=== PATIENT | female | born 1965 | race Caucasian/White ===

== ENCOUNTER 2018-08-19 08:50 | Outpatient (CLI) | payer MEDICAID | END 2018-08-19 23:59 | disposition home or self-care (01) | LOC: WOUND 08:50 | PROVIDERS: ATTEND Internal Medicine | DX: T81.32XA Disruption of internal operation (surgical) wound, not elsewhere classified, initial encounter (principal); K50.113 Crohn's disease of large intestine with fistula; E11.8 Type 2 diabetes mellitus with unspecified complications; F17.200 Nicotine dependence, unspecified, uncomplicated; Z92.25 Personal history of immunosuppression therapy; Z90.710 Acquired absence of both cervix and uterus; Y83.8 Other surgical procedures as the cause of abnormal reaction of the patient, or of later complication, without mention of misadventure at the time of the procedure; Y92.89 Other specified places as the place of occurrence of the external cause | CPT/HCPCS: 99215 ==

== ENCOUNTER → 2018-09-02 | Outpatient (CLI) | payer MEDICAID | END | disposition home or self-care (01) | LOC: WOUND 10:00 | PROVIDERS: ATTEND Internal Medicine Cardiovascular Disease | DX: T81.31XD Disruption of external operation (surgical) wound, not elsewhere classified, subsequent encounter (principal); E11.9 Type 2 diabetes mellitus without complications; K50.113 Crohn's disease of large intestine with fistula; F17.200 Nicotine dependence, unspecified, uncomplicated; Z92.25 Personal history of immunosuppression therapy; Z90.710 Acquired absence of both cervix and uterus; Y83.8 Other surgical procedures as the cause of abnormal reaction of the patient, or of later complication, without mention of misadventure at the time of the procedure | CPT/HCPCS: 99214 ==

== ENCOUNTER → 2018-09-28 | Outpatient (CLI) | payer MEDICAID | END | disposition home or self-care (01) | LOC: WOUND 14:11 | PROVIDERS: ATTEND Internal Medicine | DX: T81.31XD Disruption of external operation (surgical) wound, not elsewhere classified, subsequent encounter (principal); K50.113 Crohn's disease of large intestine with fistula; E11.9 Type 2 diabetes mellitus without complications; E03.9 Hypothyroidism, unspecified; F17.200 Nicotine dependence, unspecified, uncomplicated; Z79.4 Long term (current) use of insulin; Z79.899 Other long term (current) drug therapy; Z90.710 Acquired absence of both cervix and uterus; Z92.25 Personal history of immunosuppression therapy; Y83.8 Other surgical procedures as the cause of abnormal reaction of the patient, or of later complication, without mention of misadventure at the time of the procedure | CPT/HCPCS: 97597; 97598 ==

== ENCOUNTER 2018-12-20 08:44 | Inpatient (IN) | payer MEDICAID ==
[~2018-12-20] VITALS: Ht 172.7 cm; Wt 92.3 kg
--- NOTE | 2018-12-20 09:25 | NUR ---
PT AWAITING SURGERY AT [facility] END OF DECEMBER FOR MULTIPLE ISSUES INCLUDING FISTULA ORIGINATING FROM SMALL BOWEL. PT OVERWHELMED SURGERY HAS BEEN POSTPONED TWICE BY ONE MONTH. PT HAS NAUSEA AND DIFFICULTY KEEPING PAIN MEDS DOWN. PT HAS HOME HEALTH NURSE THAT COMES TO HER HOME DAILY TO COMPLETE WOUND CARE ON WOUNDS AT CREASES OF THIGH, ABOVE VAGINA AND FISTULA THAT ORIGINATES FOR SMALL BOWEL. MOTHER WITH PT. PT TEARY AND EXPERIENCING MUCH PAIN GETTING INTO GURNEY.
[2018-12-20] MEDS ORDERED: ONDANSETRON 2MG/ML, 2ML IVPush ONE ×2 (09:30→12:30)
[2018-12-20] MEDS ORDERED: SODIUM CHLORIDE FLUSH 10ML SYR IVF ONE (09:30)
[2018-12-20] MEDS ORDERED: BUPR100T11 PO (09:34)
[2018-12-20] MEDS ORDERED: MICO25PO2 TP (09:34)
[2018-12-20] MEDS ORDERED: METF500T17 PO (09:34)
[2018-12-20] MEDS ORDERED: ONDA4TAB7 PO (09:34)
[2018-12-20] MEDS ORDERED: OXYC10TA6 PO (09:34)
[2018-12-20] MEDS ORDERED: MICONAZOLE 2% (09:50)
[2018-12-20 10:01] LABS: BASOPHILS # (AUTO) 0.07 x10^3/uL (0-0.1); BASOPHILS % (AUTO) 1 % (0-1); EOSINOPHILS # (AUTO) 0.22 x10^3/uL (0-0.4); EOSINOPHILS % (AUTO) 2 % (1-7); LYMPHOCYTES # (AUTO) 0.86 x10^3/uL (1-3.4); LYMPHOCYTES % (AUTO) 7 % (22-44); MD NO; MEAN CORPUSCULAR HEMOGLOBIN 25.6 pg (27.0-34.8); MEAN CORPUSCULAR HGB CONC 31.3 g/dL (32.4-35.8); MEAN CORPUSCULAR VOLUME 81.9 fL (80-100); MEAN PLATELET VOLUME 7.8 fL (7.4-10.4); MONOCYTES # (AUTO) 0.63 x10^3/uL (0.2-0.8); MONOCYTES % (AUTO) 5 % (2-9); NEUTROPHILS % (AUTO) 85 % (42-75); PLATELET COUNT 430 x10^3/uL (130-400); RED CELL DISTRIBUTION WIDTH 15.3 % (9.6-15.2)
[2018-12-20] MEDS ORDERED: ONDANSETRON 2MG/ML, 2ML ONE ×2 (10:02→12:12)
[2018-12-20] MEDS ORDERED: HYDROmorphone 2 MG/ML, 1ML ONE ×2 (10:02→13:30)
[2018-12-20 10:11] LABS: ALANINE AMINOTRANSFERASE 12 U/L (12-78); ANION GAP 8 mmol/L (5-15); CALCIUM 11.2 mg/dL (8.5-10.1); CHLORIDE 100 mmol/L (98-107)
[2018-12-20 10:13] LABS: ALKALINE PHOSPHATASE 89 U/L (45-117); BILIRUBIN,TOTAL 0.6 mg/dL (0.2-1.0); CREATININE 1.44 mg/dL (0.55-1.02); TOTAL PROTEIN 8.7 g/dL (6.4-8.2)
[2018-12-20] MEDS: HYDROmorphone 2 MG/ML, 1ML IVPush PRN ×2 (10:17→13:35)
--- NOTE | 2018-12-20 10:21 | NUR ---
pt resting in room. vss. iv established and pt medicated per mar. no needs expressed. pt states will provide ua sample after pain medication begins to work.
--- NOTE | 2018-12-20 11:02 | NUR ---
PER EDMD, OK TO POSTPONE UA SAMPLE COLLECTION. NEW ORDERS RECEIVED AT THIS TIME FOR CT OF ABD.
--- NOTE | 2018-12-20 11:04 | NUR ---
pt resting in room. vss. 2lnc placed after dilaudid administration. pt reports pain has decreased from 810 to 6. no needs expressed. awaiting ct.
[2018-12-20] MEDS ORDERED: OMNIPAQUE 350 MG/ML, 100ML BOTTLE ONE (11:36)
--- NOTE | 2018-12-20 11:48 | NUR ---
PT BACK FROM IMAGING. VSS. NO NEEDS EXPRESSED. AWAITING RESULTS.
--- NOTE | 2018-12-20 11:50 | NUR ---
edmd and radiologist to bs for assessment. awaiting further orders.
--- NOTE | 2018-12-20 12:17 | NUR ---
pt requesting medication for nausea. edmd notified and orders received. medication administered. no other needs expressed. plan to admit. awaiting room assignment.
--- NOTE | 2018-12-20 12:45 | NUR ---
PT RESTING IN ROOM WITH LIGHTS DIMMED. VSS. PT REPORTS NAUSEA HAS RESOLVED. NO OTHER NEEDS EXPRESSED. CALL L[facility]. AWAITING ROOM ASSIGNMENT.
[2018-12-20] MEDS ORDERED: SODIUM CHLORIDE FLUSH 10ML SYR IVF PRN (13:00)
[2018-12-20] MEDS ORDERED: SODIUM CHLORIDE 0.9% 1,000 ML IV SCH (13:29)
[2018-12-20] MEDS ORDERED: ZOSYN PER PHARMACY MC PRN (13:30)
[2018-12-20] MEDS ORDERED: PROMETHAZINE 25 MG/ML, 1ML IM PRN (13:30)
[2018-12-20] MEDS ORDERED: LABETALOL 5 MG/ML SYRINGE IVPush PRN (13:30)
[2018-12-20] MEDS ORDERED: hydrALAzine 20 MG/ML, 1ML IVPush PRN (13:30)
--- NOTE | 2018-12-20 13:38 | NUR ---
PT RESTING IN BED. PT REPORTS INCREASED PAIN AFTER HOSPITALIST ASSESSMENT. PT MEDICATED PER MAR FOR PAIN. REPORT TO LILIANA JAY. PT READY FOR TRANSPORT.
[2018-12-20 14:33] VITALS: BP 105/65
[2018-12-20] MEDS: LINEZOLID PMX 600MG/300ML 300 ML IV SCH (14:49)
[2018-12-20] MEDS: INSULIN LISPRO 100 UNITS/ML, PEN SQ-INSULIN SCH ×2 (15:55→20:21)
[2018-12-20] MEDS: PIPERACILLIN/TAZO/PMX 3.375GM 50 ML IV SCH ×2 (17:04→23:13)
[2018-12-20] MEDS: SODIUM CHLORIDE 0.9% 1,000 ML IV SCH ×3 (17:04→22:46)
[2018-12-20] MEDS: HEPARIN 5,000 UNITS/ML, 1ML SQ SCH (17:07)
[2018-12-20] MEDS: OXYcodone IR 5MG TABLET PO PRN ×2 (18:13→22:46)
[2018-12-20 19:51] VITALS: BP 92/53
[2018-12-20] MEDS: morphine SULFATE 10 MG/ML, 1ML IVPush PRN ×2 (20:20→23:44)
[2018-12-20] MEDS: BUPROPION 100 MG TABLET PO SCH (20:20)
[2018-12-20] MEDS: ONDANSETRON 2MG/ML, 2ML IVPush PRN (20:57)
[2018-12-21] MEDS: LINEZOLID PMX 600MG/300ML 300 ML IV SCH ×2 (01:47→14:05)
[2018-12-21] MEDS: HEPARIN 5,000 UNITS/ML, 1ML SQ SCH ×3 (01:47→17:22)
[2018-12-21] MEDS: OXYcodone IR 5MG TABLET PO PRN ×5 (02:54→20:49)
[2018-12-21 03:18] VITALS: BP 90/53
[2018-12-21] MEDS: PIPERACILLIN/TAZO/PMX 3.375GM 50 ML IV SCH ×4 (04:23→22:17)
[2018-12-21] MEDS: morphine SULFATE 10 MG/ML, 1ML IVPush PRN ×3 (04:23→22:17)
[2018-12-21 06:30] LABS: BASOPHILS # (AUTO) 0.05 x10^3/uL (0-0.1); BASOPHILS % (AUTO) 1 % (0-1); EOSINOPHILS # (AUTO) 0.22 x10^3/uL (0-0.4); EOSINOPHILS % (AUTO) 3 % (1-7); LYMPHOCYTES # (AUTO) 0.81 x10^3/uL (1-3.4); LYMPHOCYTES % (AUTO) 11 % (22-44); MD NO; MEAN CORPUSCULAR HEMOGLOBIN 26.2 pg (27.0-34.8); MEAN CORPUSCULAR VOLUME 81.9 fL (80-100); MONOCYTES # (AUTO) 0.73 x10^3/uL (0.2-0.8); MONOCYTES % (AUTO) 10 % (2-9); NEUTROPHILS # (AUTO) 5.87 x10^3/uL (1.8-6.8); NEUTROPHILS % (AUTO) 76 % (42-75); PLATELET COUNT 349 x10^3/uL (130-400); RED BLOOD COUNT 3.96 x10^6/uL (3.82-5.3); RED CELL DISTRIBUTION WIDTH 14.8 % (9.6-15.2)
[2018-12-21] MEDS: INSULIN LISPRO 100 UNITS/ML, PEN SQ-INSULIN SCH ×4 (06:36→20:49)
[2018-12-21 06:39] LABS: CHLORIDE 105 mmol/L (98-107)
[2018-12-21 06:56] LABS: ALANINE AMINOTRANSFERASE 9 U/L (12-78); ALBUMIN 2.2 g/dL (3.4-5.0); ALKALINE PHOSPHATASE 71 U/L (45-117); ANION GAP 9 mmol/L (5-15); BILIRUBIN,TOTAL 0.9 mg/dL (0.2-1.0); CALCIUM 9.6 mg/dL (8.5-10.1); TOTAL PROTEIN 6.6 g/dL (6.4-8.2)
[2018-12-21 07:58] VITALS: BP 93/58
[2018-12-21] MEDS: BUPROPION 100 MG TABLET PO SCH ×3 (10:04→20:49)
[2018-12-21] MEDS: SODIUM CHLORIDE 0.9% 1,000 ML IV SCH (12:02)
[2018-12-21 12:48] LABS: MICROSCOPIC AUTO
[2018-12-21 13:04] LABS: CULTURE INDICATED? YES
[2018-12-21 14:09] VITALS: BP 85/51
[2018-12-21 20:00] VITALS: BP 105/65
[2018-12-22] MEDS: OXYcodone IR 5MG TABLET PO PRN ×5 (00:49→20:18)
[2018-12-22] MEDS: HEPARIN 5,000 UNITS/ML, 1ML SQ SCH ×3 (00:49→16:20)
[2018-12-22] MEDS: LINEZOLID PMX 600MG/300ML 300 ML IV SCH ×2 (02:23→13:51)
[2018-12-22] MEDS: morphine SULFATE 10 MG/ML, 1ML IVPush PRN ×3 (02:58→16:22)
[2018-12-22 03:00] VITALS: BP 92/52
[2018-12-22] MEDS: SODIUM CHLORIDE 0.9% 1,000 ML IV SCH ×2 (04:54→23:02)
[2018-12-22] MEDS: PIPERACILLIN/TAZO/PMX 3.375GM 50 ML IV SCH ×4 (04:54→23:02)
[2018-12-22 05:33] LABS: ALANINE AMINOTRANSFERASE 8 U/L (12-78); ALBUMIN 2.2 g/dL (3.4-5.0); ANION GAP 7 mmol/L (5-15); CALCIUM 9.6 mg/dL (8.5-10.1); CHLORIDE 108 mmol/L (98-107); CREATININE 1.33 mg/dL (0.55-1.02)
[2018-12-22 05:35] LABS: ALKALINE PHOSPHATASE 65 U/L (45-117); TOTAL PROTEIN 6.7 g/dL (6.4-8.2)
[2018-12-22 05:37] LABS: BILIRUBIN,TOTAL < 0.1 mg/dL (0.2-1.0)
[2018-12-22 06:38] VITALS: BP 93/56
[2018-12-22] MEDS: INSULIN LISPRO 100 UNITS/ML, PEN SQ-INSULIN SCH ×4 (07:00→20:17)
[2018-12-22] MEDS: BUPROPION 100 MG TABLET PO SCH ×3 (09:04→20:19)
[2018-12-22 12:14] VITALS: BP 100/63
[2018-12-22 18:33] VITALS: BP 91/60
[2018-12-23] MEDS: HEPARIN 5,000 UNITS/ML, 1ML SQ SCH ×3 (01:07→15:59)
[2018-12-23] MEDS: OXYcodone IR 5MG TABLET PO PRN ×4 (01:07→19:43)
[2018-12-23 01:43] VITALS: BP 97/54
[2018-12-23] MEDS: LINEZOLID PMX 600MG/300ML 300 ML IV SCH ×2 (01:46→13:49)
[2018-12-23] MEDS: PIPERACILLIN/TAZO/PMX 3.375GM 50 ML IV SCH ×4 (05:20→23:47)
[2018-12-23] MEDS: morphine SULFATE 10 MG/ML, 1ML IVPush PRN ×2 (05:20→15:59)
[2018-12-23 05:36] LABS: BASOPHILS # (AUTO) 0.03 x10^3/uL (0-0.1); BASOPHILS % (AUTO) 0 % (0-1); EOSINOPHILS # (AUTO) 0.28 x10^3/uL (0-0.4); EOSINOPHILS % (AUTO) 5 % (1-7); LYMPHOCYTES % (AUTO) 18 % (22-44); MD NO; MEAN CORPUSCULAR HEMOGLOBIN 26.1 pg (27.0-34.8); MEAN CORPUSCULAR HGB CONC 31.6 g/dL (32.4-35.8); MEAN CORPUSCULAR VOLUME 82.6 fL (80-100); MEAN PLATELET VOLUME 7.9 fL (7.4-10.4); MONOCYTES # (AUTO) 0.43 x10^3/uL (0.2-0.8); MONOCYTES % (AUTO) 7 % (2-9); NEUTROPHILS # (AUTO) 4.22 x10^3/uL (1.8-6.8); NEUTROPHILS % (AUTO) 70 % (42-75); PLATELET COUNT 381 x10^3/uL (130-400); RED BLOOD COUNT 4.06 x10^6/uL (3.82-5.3)
[2018-12-23 05:39] LABS: HCT (SEDRATE) 33.3 % (34.6-47.8)
[2018-12-23 05:42] LABS: CHLORIDE 107 mmol/L (98-107)
[2018-12-23 05:58] LABS: ALANINE AMINOTRANSFERASE 11 U/L (12-78); ALBUMIN 2.4 g/dL (3.4-5.0); ALKALINE PHOSPHATASE 69 U/L (45-117); ANION GAP 9 mmol/L (5-15); BILIRUBIN,TOTAL 0.3 mg/dL (0.2-1.0); CALCIUM 9.8 mg/dL (8.5-10.1)
[2018-12-23] MEDS: INSULIN LISPRO 100 UNITS/ML, PEN SQ-INSULIN SCH ×4 (07:33→22:54)
[2018-12-23 07:55] VITALS: BP 100/66
[2018-12-23] MEDS: BUPROPION 100 MG TABLET PO SCH ×3 (07:56→22:55)
[2018-12-23 14:55] VITALS: BP 115/73
[2018-12-23 20:18] VITALS: BP 106/55
[2018-12-24] MEDS: OXYcodone IR 5MG TABLET PO PRN ×5 (00:32→20:44)
[2018-12-24] MEDS: HEPARIN 5,000 UNITS/ML, 1ML SQ SCH ×3 (00:33→16:38)
[2018-12-24 01:31] VITALS: BP 101/64
[2018-12-24] MEDS: PIPERACILLIN/TAZO/PMX 3.375GM 50 ML IV SCH ×4 (05:26→22:45)
[2018-12-24 06:06] LABS: ALBUMIN 2.4 g/dL (3.4-5.0); ANION GAP 7 mmol/L (5-15); CALCIUM 9.8 mg/dL (8.5-10.1); CHLORIDE 109 mmol/L (98-107)
[2018-12-24 06:11] LABS: ALANINE AMINOTRANSFERASE 8 U/L (12-78); ALKALINE PHOSPHATASE 64 U/L (45-117); BILIRUBIN,TOTAL 0.4 mg/dL (0.2-1.0); CREATININE 1.33 mg/dL (0.55-1.02)
[2018-12-24] MEDS: INSULIN LISPRO 100 UNITS/ML, PEN SQ-INSULIN SCH ×4 (07:00→20:44)
[2018-12-24 07:10] VITALS: BP 102/62
[2018-12-24] MEDS: BUPROPION 100 MG TABLET PO SCH ×3 (09:06→20:44)
[2018-12-24] MEDS: morphine SULFATE 10 MG/ML, 1ML IVPush PRN ×2 (12:35→16:46)
[2018-12-24 12:47] VITALS: BP 106/70
[2018-12-24] MEDS: ACETAMINOPHEN 325 MG TABLET PO PRN ×2 (16:42→20:44)
[2018-12-24] MEDS: CLOTRIM/BETAMETH 1%/0.05% CRM TP SCH (20:45)
[2018-12-24 21:07] VITALS: BP 101/67
[2018-12-25] MEDS: ACETAMINOPHEN 325 MG TABLET PO PRN ×5 (00:37→23:54)
[2018-12-25] MEDS: HEPARIN 5,000 UNITS/ML, 1ML SQ SCH ×3 (00:37→17:29)
[2018-12-25] MEDS: OXYcodone IR 5MG TABLET PO PRN ×6 (00:37→23:55)
[2018-12-25] MEDS: ONDANSETRON 2MG/ML, 2ML IVPush PRN (00:40)
[2018-12-25] MEDS: morphine SULFATE 10 MG/ML, 1ML IVPush PRN ×5 (02:14→21:40)
[2018-12-25 03:07] VITALS: BP 105/61
[2018-12-25] MEDS: PIPERACILLIN/TAZO/PMX 3.375GM 50 ML IV SCH ×4 (04:47→22:22)
[2018-12-25 06:55] VITALS: BP 103/67
[2018-12-25] MEDS: INSULIN LISPRO 100 UNITS/ML, PEN SQ-INSULIN SCH ×4 (07:00→21:00)
[2018-12-25] MEDS: BUPROPION 100 MG TABLET PO SCH ×3 (08:51→21:30)
[2018-12-25] MEDS: CLOTRIM/BETAMETH 1%/0.05% CRM TP SCH ×2 (12:00→21:30)
[2018-12-25 15:00] VITALS: BP 92/61
[2018-12-25 20:15] VITALS: BP 104/66
[2018-12-26 00:46] VITALS: BP 98/62
[2018-12-26] MEDS: HEPARIN 5,000 UNITS/ML, 1ML SQ SCH ×3 (01:21→16:49)
[2018-12-26] MEDS: morphine SULFATE 10 MG/ML, 1ML IVPush PRN ×2 (03:01→10:59)
[2018-12-26] MEDS: OXYcodone IR 5MG TABLET PO PRN ×5 (04:20→21:14)
[2018-12-26] MEDS: PIPERACILLIN/TAZO/PMX 3.375GM 50 ML IV SCH ×4 (04:20→22:31)
[2018-12-26] MEDS: ACETAMINOPHEN 325 MG TABLET PO PRN ×4 (04:20→16:49)
[2018-12-26] MEDS: INSULIN LISPRO 100 UNITS/ML, PEN SQ-INSULIN SCH ×4 (07:00→21:19)
[2018-12-26] MEDS: CLOTRIM/BETAMETH 1%/0.05% CRM TP SCH ×2 (08:20→21:13)
[2018-12-26] MEDS: BUPROPION 100 MG TABLET PO SCH ×3 (08:20→21:13)
[2018-12-26 08:22] VITALS: BP 107/70
[2018-12-26 17:04] VITALS: BP 110/71
[2018-12-26 17:05] VITALS: BP 110/71
[2018-12-26 19:11] VITALS: BP 109/58
[2018-12-27] MEDS: OXYcodone IR 5MG TABLET PO PRN ×4 (02:14→21:37)
[2018-12-27] MEDS: HEPARIN 5,000 UNITS/ML, 1ML SQ SCH ×3 (02:14→17:17)
[2018-12-27 02:30] VITALS: BP 114/72
[2018-12-27] MEDS: morphine SULFATE 10 MG/ML, 1ML IVPush PRN ×3 (03:02→13:27)
[2018-12-27] MEDS: PIPERACILLIN/TAZO/PMX 3.375GM 50 ML IV SCH ×4 (05:01→23:07)
[2018-12-27] MEDS: INSULIN LISPRO 100 UNITS/ML, PEN SQ-INSULIN SCH ×4 (07:00→21:41)
[2018-12-27 07:31] VITALS: BP 111/69
[2018-12-27] MEDS: CLOTRIM/BETAMETH 1%/0.05% CRM TP SCH ×2 (09:37→21:37)
[2018-12-27] MEDS: BUPROPION 100 MG TABLET PO SCH ×3 (09:37→21:36)
[2018-12-27] MEDS: ACETAMINOPHEN 325 MG TABLET PO PRN (11:18)
[2018-12-27 12:23] VITALS: BP 113/69
[2018-12-27 21:45] VITALS: BP 114/71
[2018-12-28] MEDS: HEPARIN 5,000 UNITS/ML, 1ML SQ SCH ×3 (01:47→16:11)
[2018-12-28] MEDS: OXYcodone IR 5MG TABLET PO PRN ×5 (01:47→20:19)
[2018-12-28 01:56] VITALS: BP 106/69
[2018-12-28] MEDS: PIPERACILLIN/TAZO/PMX 3.375GM 50 ML IV SCH ×4 (04:54→22:25)
[2018-12-28 05:29] LABS: BASOPHILS # (AUTO) 0.09 x10^3/uL (0-0.1); BASOPHILS % (AUTO) 1 % (0-1); EOSINOPHILS % (AUTO) 6 % (1-7); LYMPHOCYTES # (AUTO) 1.27 x10^3/uL (1-3.4); LYMPHOCYTES % (AUTO) 18 % (22-44); MD NO; MEAN CORPUSCULAR HEMOGLOBIN 25.7 pg (27.0-34.8); MEAN CORPUSCULAR HGB CONC 31.2 g/dL (32.4-35.8); MEAN CORPUSCULAR VOLUME 82.5 fL (80-100); MEAN PLATELET VOLUME 7.1 fL (7.4-10.4); MONOCYTES # (AUTO) 0.48 x10^3/uL (0.2-0.8); MONOCYTES % (AUTO) 7 % (2-9); NEUTROPHILS # (AUTO) 4.72 x10^3/uL (1.8-6.8); NEUTROPHILS % (AUTO) 68 % (42-75); PLATELET COUNT 418 x10^3/uL (130-400); RED BLOOD COUNT 4.52 x10^6/uL (3.82-5.3); RED CELL DISTRIBUTION WIDTH 15.5 % (9.6-15.2)
[2018-12-28 05:35] LABS: ALBUMIN 2.9 g/dL (3.4-5.0); ANION GAP 6 mmol/L (5-15); CALCIUM 10.7 mg/dL (8.5-10.1); CHLORIDE 108 mmol/L (98-107)
[2018-12-28 05:40] LABS: ALANINE AMINOTRANSFERASE 14 U/L (12-78); ALKALINE PHOSPHATASE 76 U/L (45-117); BILIRUBIN,TOTAL 0.2 mg/dL (0.2-1.0); C-REACTIVE PROTEIN, QUANT 0.92 mg/dL (0.02-0.49); CREATININE 1.23 mg/dL (0.55-1.02); TOTAL PROTEIN 8.2 g/dL (6.4-8.2)
[2018-12-28] MEDS: INSULIN LISPRO 100 UNITS/ML, PEN SQ-INSULIN SCH ×4 (06:11→21:00)
[2018-12-28 06:35] LABS: HCT (SEDRATE) 37.3 % (34.6-47.8)
[2018-12-28] MEDS: ONDANSETRON 2MG/ML, 2ML IVPush PRN (06:46)
[2018-12-28 07:32] VITALS: BP 110/72
[2018-12-28] MEDS: BUPROPION 100 MG TABLET PO SCH ×3 (08:41→21:14)
[2018-12-28] MEDS: CLOTRIM/BETAMETH 1%/0.05% CRM TP SCH ×2 (08:41→21:15)
[2018-12-28] MEDS: morphine SULFATE 10 MG/ML, 1ML IVPush PRN ×3 (08:49→18:21)
[2018-12-28 13:50] VITALS: BP 98/62
[2018-12-28 19:15] VITALS: BP 91/54
[2018-12-29] MEDS: OXYcodone IR 5MG TABLET PO PRN ×5 (01:08→20:12)
[2018-12-29] MEDS: HEPARIN 5,000 UNITS/ML, 1ML SQ SCH ×3 (01:09→16:36)
[2018-12-29 02:10] VITALS: BP 107/63
[2018-12-29] MEDS: PIPERACILLIN/TAZO/PMX 3.375GM 50 ML IV SCH ×4 (05:07→23:15)
[2018-12-29 07:04] VITALS: BP 96/60
[2018-12-29] MEDS: INSULIN LISPRO 100 UNITS/ML, PEN SQ-INSULIN SCH ×4 (07:10→23:16)
[2018-12-29] MEDS: BUPROPION 100 MG TABLET PO SCH ×3 (09:14→23:16)
[2018-12-29] MEDS: morphine SULFATE 10 MG/ML, 1ML IVPush PRN ×4 (09:14→23:15)
[2018-12-29] MEDS: CLOTRIM/BETAMETH 1%/0.05% CRM TP SCH ×2 (09:15→23:15)
[2018-12-29] MEDS: ONDANSETRON 2MG/ML, 2ML IVPush PRN (10:01)
[2018-12-29 13:13] VITALS: BP 113/73
[2018-12-29 19:03] VITALS: BP 94/55
[2018-12-30] MEDS: HEPARIN 5,000 UNITS/ML, 1ML SQ SCH ×2 (01:10→08:55)
[2018-12-30] MEDS: OXYcodone IR 5MG TABLET PO PRN ×3 (01:10→16:04)
[2018-12-30 01:42] VITALS: BP 91/59
[2018-12-30] MEDS: PIPERACILLIN/TAZO/PMX 3.375GM 50 ML IV SCH ×3 (05:55→16:05)
[2018-12-30] MEDS: INSULIN LISPRO 100 UNITS/ML, PEN SQ-INSULIN SCH ×3 (07:00→16:50)
[2018-12-30] MEDS: BUPROPION 100 MG TABLET PO SCH ×2 (08:55→16:04)
[2018-12-30] MEDS: morphine SULFATE 10 MG/ML, 1ML IVPush PRN (08:55)
[2018-12-30] MEDS: CLOTRIM/BETAMETH 1%/0.05% CRM TP SCH (08:57)
[2018-12-30 10:45] VITALS: BP 100/64
[2018-12-30 12:35] VITALS: BP 101/66
[2018-12-30] MEDS ORDERED: CIPR500T3 PO (13:11)
[2018-12-30] MEDS ORDERED: AMOX1TAB64 PO (13:11)
== END 2018-12-30 17:50 | disposition home or self-care (01) | DRG 871 ==
LOC: ED 12:20 → EDIP 13:34 → 4NOR 14:00
PROVIDERS: ADMIT Hospitalist; ATTEND Hospitalist
DX: A41.9 Sepsis, unspecified organism (principal); N17.0 Acute kidney failure with tubular necrosis; E44.1 Mild protein-calorie malnutrition; E87.1 Hypo-osmolality and hyponatremia; K50.90 Crohn's disease, unspecified, without complications; K61.1 Rectal abscess; N39.0 Urinary tract infection, site not specified; K63.2 Fistula of intestine; N76.4 Abscess of vulva; B96.5 Pseudomonas (aeruginosa) (mallei) (pseudomallei) as the cause of diseases classified elsewhere; B96.89 Other specified bacterial agents as the cause of diseases classified elsewhere; E66.01 Morbid (severe) obesity due to excess calories; E86.0 Dehydration; E83.52 Hypercalcemia; E86.1 Hypovolemia; B96.1 Klebsiella pneumoniae [K. pneumoniae] as the cause of diseases classified elsewhere; N18.9 Chronic kidney disease, unspecified; E11.22 Type 2 diabetes mellitus with diabetic chronic kidney disease; G89.29 Other chronic pain; Z90.49 Acquired absence of other specified parts of digestive tract; Z90.710 Acquired absence of both cervix and uterus; Z93.2 Ileostomy status; Z93.3 Colostomy status; Z68.30 Body mass index [BMI] 30.0-30.9, adult
CPT/HCPCS: 36415; 74177; 80053; 81001; 82962; 83605; 83690; 84145; 85025; 85651; 86140; 87040; 87070; 87075; 87077; 87086; 87186; 87205; 96374; 96375; 96376; G0378; J1170; J1644; J2020; J2405; J2543; J2550; Q9967; J1815; J2270; J7030

== ENCOUNTER 2019-03-08 10:02 | Emergency (ER) | payer MEDICAID ==
[~2019-03-08] VITALS: Ht 172.7 cm; Wt 93.0 kg
[2019-03-08 11:24] VITALS: BP 102/47
== END 2019-03-08 12:05 | disposition home or self-care (01) ==
LOC: ED 11:05
DX: R10.2 Pelvic and perineal pain (principal); Z76.0 Encounter for issue of repeat prescription; E11.9 Type 2 diabetes mellitus without complications
CPT/HCPCS: 99283; Q0162